=== PATIENT | female | born 1950 | race Caucasian/White ===

== ENCOUNTER → 2016-11-21 | Outpatient (CLI) | payer OTHER | LOC: RAD 02:36 | DX: Z12.31 Encounter for screening mammogram for malignant neoplasm of breast (principal) ==

== ENCOUNTER → 2016-12-02 | Outpatient (CLI) | payer OTHER | LOC: ULTRA 02:07 | DX: N63 Unspecified lump in breast (principal) ==

== ENCOUNTER → 2017-02-06 | Outpatient (CLI) | payer OTHER | LOC: MRI 09:49 | DX: M75.102 Unspecified rotator cuff tear or rupture of left shoulder, not specified as traumatic (principal); M25.812 Other specified joint disorders, left shoulder ==

== ENCOUNTER → 2017-12-02 | Outpatient (CLI) | payer OTHER | LOC: RAD 09:00 | DX: Z12.31 Encounter for screening mammogram for malignant neoplasm of breast (principal) ==

== ENCOUNTER → 2018-12-21 | Outpatient (CLI) | payer OTHER | LOC: RAD 14:26 | DX: Z12.31 Encounter for screening mammogram for malignant neoplasm of breast (principal) ==

== ENCOUNTER → 2019-12-29 | Outpatient (CLI) | payer OTHER | LOC: RAD 08:12 | PROVIDERS: ATTEND Obstetrics & Gynecology | DX: Z12.31 Encounter for screening mammogram for malignant neoplasm of breast (principal); N64.89 Other specified disorders of breast ==

== ENCOUNTER → 2021-02-28 | Outpatient (CLI) | payer OTHER | LOC: BC 10:09 | PROVIDERS: ATTEND Obstetrics & Gynecology | DX: Z12.31 Encounter for screening mammogram for malignant neoplasm of breast (principal) ==